=== PATIENT | female | born 1980 | race African-American/Black ===

== ENCOUNTER 2016-09-27 06:30 | Emergency (ER) | payer MEDICAID, OTHER ==
[~2016-09-27] VITALS: Ht 162.6 cm; Wt 79.4 kg
[~2016-09-27 06:30] MED LIST: FLUT1SPR5 EACH NARE; TRAM50TA PO; ZOFR4TAB PO
[2016-09-27 06:37] VITALS: BP 121/84; PULSE 78; RESP 16; TEMP 97.8; O2SAT 100
[2016-09-27 07:09] LABS: BLOOD, URINE LARGE (NEG); GLUCOSE,URINE NEG (NEG); KETONE, URINE NEG (NEG); NITRITE,URINE NEG (NEG); PH, URINE 5.5 (5.0-8.5)
[2016-09-27 07:12] LABS: METHOD OF COLLECTION CLEAN CATCH; URINE COLOR YELLOW (YELLW/STRAW)
[2016-09-27 07:14] LABS: COMMENT (UR) CULTURE INDICATED; CULTURE IF INDICATED CULTURE INDICATED
[2016-09-27] MEDS ORDERED: CIPR-9 PO (07:20)
--- NOTE | 2016-09-27 07:54 | PD ---
HPI Chief Complaint: Complaint Time Seen by Provider: 07:15 Travel History International Travel<30 days: No Contact w/Intl Traveler<30days: No Traveled to known affect area: No History of Present Illness HPI The patient was seen and examined in the presence of the nurse. She complains of urinary urgency and hematuria. No fever or flank pain. Symptoms severity is mild PFSH Past Medical History Hx Anticoagulant Therapy: No Asthma: Yes Heart Rhythm Problems: No Cardiac Catheterization: No Cardiovascular Problems: No High Cholesterol: No Congestive Heart Failure: No Diabetes: No Diminished Hearing: No Headaches: Yes Heparin Induced Thrombocytopen: No Hypertension: No Musculoskeletal: Yes (CHRONIC BACK PAIN) Immunizations Current: Yes ?: Not LMP: 08/30/16 : 4 Para: 2 Miscarriage: 1 : 1 Tubal Ligation: Yes Past Surgical History Section: Yes Coronary Artery Bypass Graft: No Gynecologic Surgery: Yes (C/SECTION, D&C) Social History Alcohol Use: No Tobacco Use: Yes (09/27 ppd) Substance Use: No Allergies-Medications (Allergen,Severity, Reaction): Coded Allergies: Lortab (Unverified Allergy, Severe, anaphylaxis, 09/27/16) Orphenadrine (Verified Allergy, Severe, "GOT A UTI", 09/27/16) Zithromax (Verified Allergy, Severe, Lethargy, 09/27/16) Vaishali Seed (Verified Allergy, Unknown, 09/27/16) [place] (Verified Allergy, Unknown, 09/27/16) Uncoded Allergies: TREE NUTS (Allergy, Unknown, 07/25/16) Reported Meds & Prescriptions Reported Meds & Active Scripts Active Cipro (Ciprofloxacin HCl) 500 Mg Tab 500 Mg PO BID Review of Systems General / Constitutional: No: Fever HENT: No: Headaches Physical Exam Narrative GASTROINTESTINAL: Abdomen soft, non-tender, nondistended. Positive bowel sounds. No hepato-splenomegaly, or palpable masses. No guarding. SKIN: Inspection shows no rash or ulcers. Palpation shows no induration or nodules. Data Data Last Documented VS Vital Signs Date Time Temp Pulse Resp B/P Pulse Ox O2 Delivery O2 Flow Rate FiO2 09/27/16 06:37 97.8 78 16 121/84 100 Room Air Orders Urinalysis - C+S If Indicated (09/27/16 07:00) Urine Culture (09/27/16 06:58) Labs Laboratory Tests Test 09/27/16 06:58 Urine Collection Type CLEAN CATCH Urine Color YELLOW Urine Turbidity CLOUDY Urine pH 5.5 Urine Specific [place] 1.008 Urine Protein NEG mg/dL Urine Glucose (UA) NEG mg/dL Urine Ketones NEG mg/dL Urine Occult Blood LARGE Urine Nitrite NEG Urine Bilirubin NEG Urine Leukocyte Esterase LARGE Urine RBC 10-14 /hpf Urine WBC 25-49 /hpf Urine WBC Clumps MANY Microscopic Urinalysis Comment CULTURE INDICATED MDM Medical Decision Making Medical Screen Exam Complete: Yes Emergency Medical Condition: Yes Medical Record Reviewed: Yes Differential Diagnosis Cystitis, pyelonephritis, UTI Narrative Course I have reviewed the patient's electronic medical record. Urinalysis consistent with infection Prescribed 5 days of Cipro Diagnosis Primary Impression: Acute cystitis Qualified Code: N30.01 - Acute cystitis with hematuria Referrals: Family Practice Physician call for appointment Patient Instructions: General Instructions, Dysuria (ED) Departure Forms: Work Release, Enter return to work date: Sep 28, 2016 Tests/Procedures Scripts Ciprofloxacin (Cipro)500 Mg [id number] Mg PO BID #10 TAB Ref 0 Prov:Riley Nagy MD 09/27/16 Disposition: DISCHARGE HOME Condition: Stable Riley Nagy MD Sep 27, 2016 07:54
[2017-03-10] MEDS ORDERED: GABA300C5 PO (10:04)
== END 2016-09-27 08:22 | disposition home or self-care (01) ==
LOC: PHED 06:30
DX: N30.01 Acute cystitis with hematuria (principal); B96.89 Other specified bacterial agents as the cause of diseases classified elsewhere
CPT/HCPCS: 81001; 87086; 99283

== ENCOUNTER 2017-02-26 12:55 | Emergency (ER) | payer MEDICAID, OTHER ==
[~2017-02-26] VITALS: Ht 162.6 cm; Wt 78.0 kg
[2017-02-26 12:58] VITALS: BP 133/88; PULSE 72; RESP 24; TEMP 97.7; O2SAT 100
--- NOTE | 2017-02-26 13:02 | PD ---
Physical Exam Date Seen by Provider: Feb 26, 2017 Data Data Last Documented VS Vital Signs Date Time Temp Pulse Resp B/P Pulse Ox O2 Delivery O2 Flow Rate FiO2 02/26/17 12:58 97.7 72 24 133/88 100 Room Air MDM Supervised Visit with ALEX: No Narrative Course 36 year old female with complaint of heavy menstrual bleeding, weakness, chills x 2 days. Denies risk of . Vitals reviewed. Awaiting bed placement. Lucille Niño Feb 26, 2017 13:02
--- NOTE | 2017-02-26 13:34 | PD ---
HPI Chief Complaint: Leave Specialist Problem/Complaint Time Seen by Provider: 13:34 Travel History International Travel<30 days: No Contact w/Intl Traveler<30days: No Traveled to known affect area: No History of Present Illness HPI 36 year-old female presents to the emergency department for evaluation of vaginal bleeding for 2 days. Patient states that she has had episodes of heavy vaginal bleeding associated with menses. She has been followed by Gretel Cisneros for this and has appointment March 02 to follow-up. Today she came to the emergency department because she states she feels more tired than usual "like she can barely keep her eyes open." Denies any significant pain. She has menses-like cramping. Denies vaginal discharge other than the bleeding. Has had no fever or chills. No nausea or vomiting. She has no other symptoms to report. PFSH Past Medical History Hx Anticoagulant Therapy: No Asthma: Yes Heart Rhythm Problems: No Cardiac Catheterization: No Cardiovascular Problems: No High Cholesterol: No Chemotherapy: No Congestive Heart Failure: No Cerebrovascular Accident: No Diabetes: No Diminished Hearing: No Headaches: Yes Heparin Induced Thrombocytopen: No Hypertension: No Musculoskeletal: Yes (CHRONIC BACK PAIN) Respiratory: Yes (Asthma) Immunizations Current: Yes LMP: Currently : 4 Para: 2 Miscarriage: 1 : 1 Tubal Ligation: Yes Past Surgical History Section: Yes Coronary Artery Bypass Graft: No Gynecologic Surgery: Yes (C/SECTION, D&C) Hysterectomy: No Social History Alcohol Use: No Tobacco Use: Yes (1/2 ppd) Substance Use: No Allergies-Medications (Allergen,Severity, Reaction): Coded Allergies: Orphenadrine (Verified Allergy, Severe, "GOT A UTI", 02/26/17) Zithromax (Verified Allergy, Severe, itching, 02/26/17) [place] (Verified Allergy, Intermediate, itching, 02/26/17) [place] (Verified Allergy, Unknown, itching, 02/26/17) Lortab (Verified Adverse Reaction, Intermediate, anaphylaxis, 02/26/17) Uncoded Allergies: TREE NUTS (Allergy, Unknown, 07/25/16) Reported Meds & Prescriptions Reported Meds & Active Scripts Active No Active Prescriptions or Reported Medications Review of Systems Except as stated in HPI: all other systems reviewed are Neg Physical Exam Narrative GENERAL: Well-nourished female patient, in no acute distress SKIN: Focused skin assessment warm/dry. HEAD: Atraumatic. Normocephalic. EYES: Pupils equal and round. No scleral icterus. No injection or drainage. ENT: No nasal bleeding or discharge. Mucous membranes pink and moist. NECK: Trachea midline. No JVD. CARDIOVASCULAR: Regular rate and rhythm. No murmur appreciated. RESPIRATORY: No accessory muscle use. Clear to auscultation. Breath sounds equal bilaterally. GASTROINTESTINAL: Abdomen soft, non-tender, nondistended. Hepatic and splenic margins not palpable. MUSCULOSKELETAL: No obvious deformities. No clubbing. No cyanosis. No edema. NEUROLOGICAL: Awake and alert. No obvious cranial nerve deficits. Motor grossly within normal limits. Normal speech. Data Data Last Documented VS Vital Signs Date Time Temp Pulse Resp B/P Pulse Ox O2 Delivery O2 Flow Rate FiO2 02/26/17 15:45 97.8 76 17 122/77 99 02/26/17 12:58 Room Air Orders Iv Access Insert/Monitor (02/26/17 13:46) Complete Blood Count With Diff (02/26/17 13:46) Basic Metabolic Panel (Bmp) (02/26/17 13:46) Urinalysis - C+S If Indicated (02/26/17 13:46) Sodium Chlor 0.9% 1000 Ml Inj (Ns 1000 M (02/26/17 14:00) Type And Screen (02/26/17 13:46) Labs Laboratory Tests Test 02/26/17 13:50 White Blood Count 5.9 TH/MM3 Red Blood Count 4.68 MIL/MM3 Hemoglobin 13.8 GM/DL Hematocrit 40.8 % Mean Corpuscular Volume 87.2 FL Mean Corpuscular Hemoglobin 29.5 PG Mean Corpuscular Hemoglobin 33.9 % Concent Red Cell Distribution Width 12.4 % Platelet Count 196 TH/MM3 Mean Platelet Volume 9.2 FL Neutrophils (%) (Auto) 50.3 % Lymphocytes (%) (Auto) 36.1 % Monocytes (%) (Auto) 10.2 % Eosinophils (%) (Auto) 2.2 % Basophils (%) (Auto) 1.2 % Neutrophils # (Auto) 3.0 TH/MM3 Lymphocytes # (Auto) 2.1 TH/MM3 Monocytes # (Auto) 0.6 TH/MM3 Eosinophils # (Auto) 0.1 TH/MM3 Basophils # (Auto) 0.1 TH/MM3 CBC Comment DIFF FINAL Differential Comment Urine Color YELLOW Urine Turbidity CLEAR Urine pH 6.5 Urine Specific [place] 1.022 Urine Protein NEG mg/dL Urine Glucose (UA) NEG mg/dL Urine Ketones NEG mg/dL Urine Occult Blood MOD Urine Nitrite NEG Urine Bilirubin NEG Urine Urobilinogen LESS THAN 2.0 MG/DL Urine Leukocyte Esterase NEG Urine RBC 31 /hpf Urine Squamous Epithelial <1 /hpf Cells Urine Mucus FEW /lpf Microscopic Urinalysis Comment CULT NOT INDICATED Sodium Level 139 MEQ/L Potassium Level 3.7 MEQ/L Chloride Level 106 MEQ/L Carbon Dioxide Level 26.7 MEQ/L Anion Gap 6 MEQ/L Blood Urea Nitrogen 12 MG/DL Creatinine 0.78 MG/DL Estimat Glomerular Filtration 100 ML/MIN Rate Random Glucose 92 MG/DL Calcium Level 8.8 MG/DL Blood Type AB POSITIVE Antibody Screen NEGATIVE Blood Bank Comment MDM Medical Decision Making Medical Screen Exam Complete: Yes Emergency Medical Condition: Yes Medical Record Reviewed: Yes Differential Diagnosis Vaginal bleeding versus menses versus menorrhagia versus dysmenorrhea versus symptomatic anemia fatigue versus electrolyte abnormality Narrative Course 36 year-old female presents to the emergency department for evaluation of vaginal bleeding 2 days with associated fatigue. Patient appears without distress. Her vital signs are stable. CBC and BMP are unremarkable. I discussed the patient my attending physician. Patient states she has an appointment on March 02 with Gretel who follows her for her vaginal bleeding. Patient is instructed to follow-up with her and to return immediately with any acute worsening symptoms. Diagnosis Primary Impression: Menorrhagia Qualified Code: N92.0 - Menorrhagia with regular cycle Referrals: Gretel Cisneros call for appointment Keep appt for March 02 Primary Care Physician Patient Instructions: General Instructions, Menorrhagia (ED) Departure Forms: Tests/Procedures, Work Release Enter return to work date: Feb 28, 2017 Additional Instructions: Maintain adequate oral hydration Follow-up with your field training agent. Keep your appointment as scheduled Return immediately to the emergency department with any acute worsening symptoms Med/Other Pt SpecificInfo: No Change to Meds Scripts No Active Prescriptions or Reported Meds Disposition: 01 DISCHARGE HOME Condition: Stable Tram Bhakta Feb 26, 2017 13:34
[2017-02-26] MEDS ORDERED: SODIUM CHLOR 0.9% 1000 ML INJ 1,000 ML IV ONE (14:00)
[2017-02-26 14:08] LABS: BASOPHIL # 0.1 TH/MM3 (0-0.2); BASOPHIL % 1.2 % (0.0-2.0); EOSINOPHIL # 0.1 TH/MM3 (0-0.4); EOSINOPHIL % 2.2 % (0.0-4.0); HEMATOCRIT 40.8 % (35.0-46.0); HEMO FLAGS DIFF FINAL; LYMPH % 36.1 % (9.0-44.0); LYMPHOCYTE # 2.1 TH/MM3 (1.0-4.8); MEAN CELL VOLUME 87.2 FL (80.0-100.0); MEAN CORPUSCULAR HEMOGLOBIN 29.5 PG (27.0-34.0); MEAN CORPUSCULAR HGB CONC 33.9 % (32.0-36.0); MONO % 10.2 % (0.0-8.0); NEUT % 50.3 % (16.0-70.0); PLATELET COUNT 196 TH/MM3 (150-450); RED BLOOD COUNT 4.68 MIL/MM3 (4.00-5.30); RED CELL DISTRIBUTION WIDTH 12.4 % (11.6-17.2); WHITE BLOOD COUNT 5.9 TH/MM3 (4.0-11.0)
[2017-02-26 14:15] LABS: BLOOD, URINE MOD (NEG); COMMENT (UR) CULT NOT INDICATED; CULTURE IF INDICATED CULT NOT INDICATED; GLUCOSE,URINE NEG (NEG); KETONE, URINE NEG (NEG); MUCUS URINE FEW /lpf (OCC); NITRITE,URINE NEG (NEG); PH, URINE 6.5 (5.0-8.5); SQUAMOUS EPITHELIAL CELL URINE <1 /hpf (0-5); URINE COLOR YELLOW (YELLW/STRAW)
[2017-02-26 14:22] LABS: BICARBONATE 26.7 MEQ/L (21.0-32.0); POTASSIUM 3.7 MEQ/L (3.5-5.1)
[2017-02-26 15:45] VITALS: BP 122/77; TEMP 97.8
[2017-03-10] MEDS ORDERED: GABA300C5 PO (10:04)
== END 2017-02-26 15:20 | disposition home or self-care (01) ==
LOC: NEPC 12:55
DX: N92.0 Excessive and frequent menstruation with regular cycle (principal); J45.909 Unspecified asthma, uncomplicated; F17.210 Nicotine dependence, cigarettes, uncomplicated
CPT/HCPCS: 80048; 81001; 85025; 86850; 86900; 86901; 99283; J7030

== ENCOUNTER 2017-03-20 09:49 | Emergency (ER) | payer MEDICAID, OTHER ==
[~2017-03-20] VITALS: Ht 162.6 cm; Wt 78.0 kg
[~2017-03-20 09:49] MED LIST changes: -FLUT1SPR5 EACH NARE; +GABA300C5 PO; -TRAM50TA PO; -ZOFR4TAB PO
[2017-03-20 09:51] VITALS: BP 120/81; PULSE 83; RESP 16; TEMP 98.2; O2SAT 100
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
[2017-03-20] MEDS ORDERED: GABA300C5 PO (10:08)
[2017-03-20] MEDS ORDERED: IBUP-232 PO (10:08)
[2017-03-20] MEDS ORDERED: PERC5TAB12 PO ×2 (10:17→10:38)
[2017-03-20] MEDS ORDERED: DEXAMETHASONE SOD PHOS 4 MG/ML VIAL IM ONE (10:30)
[2017-03-20] MEDS ORDERED: oxyCODONE/ACETAMINOPHEN 5 MG/325 MG TAB PO ONE (10:30)
== END 2017-03-20 11:07 | disposition home or self-care (01) ==
LOC: PHEFT 09:49
DX: M79.2 Neuralgia and neuritis, unspecified (principal); M79.672 Pain in left foot
CPT/HCPCS: 96372 ×2; 99284; J1100

== ENCOUNTER → 2017-05-13 | Outpatient (CLI) | payer OTHER, MEDICAID ==
[~2017-05-13] MED LIST changes: +AMOX500T PO; +DIAZ5 PO; +IBUP-232 PO; +PERC5TAB12 PO
== END ==
LOC: CPRE 12:53
PROVIDERS: ATTEND Obstetrics & Gynecology
DX: Z01.812 Encounter for preprocedural laboratory examination (principal)

== ENCOUNTER 2017-06-08 06:08 | Observation (INO) | payer OTHER, MEDICAID ==
[~2017-06-08] VITALS: Ht 162.6 cm; Wt 75.8 kg
[~2017-06-08 06:08] MED LIST changes: -AMOX500T PO
[2017-06-08] MEDS: CHLORHEXIDINE GLUCONATE 2 % 1 PACK (2 CLOTHS) TOPICAL PRN (06:20)
[2017-06-08] MEDS ORDERED: ESTROGENS CONJUGATED VAG CREA 15 APPL/30 GM TUBE ONE (06:43)
[2017-06-08] MEDS ORDERED: INSULIN HUMAN REGULAR 1,000 UNITS/10 ML VIAL SQ PRN (06:45)
[2017-06-08] MEDS ORDERED: LACTATED RINGER'S 1000 ML IV PRN (06:45)
[2017-06-08] MEDS ORDERED: METOPROLOL TARTRATE 25 MG TAB PO PRN (06:45)
[2017-06-08] MEDS ORDERED: SODIUM CHLORID 0.9% 500 ML IV PRN (06:45)
[2017-06-08] MEDS: POVIDONE IODINE 5% (ANTISEPSIS KIT) 4 APPLICATIONS EACH NARE PRN ×2 (06:56→06:57)
[2017-06-08] MEDS: ceFAZolin 1,000 MG/NS 100 ML IV SCH ×4 (07:00→08:30)
[2017-06-08] MEDS ORDERED: DO NOT ADM ANY ANTICOAGULANT DRUGS PRN (10:59)
[2017-06-08] MEDS ORDERED: ONDANSETRON ODT 4 MG TAB PO PRN (11:00)
[2017-06-08] MEDS ORDERED: oxyCODONE/ACETAMINOPHEN 5 MG/325 MG TAB PO PRN (11:00)
[2017-06-08] MEDS ORDERED: SODIUM CHLORIDE 0.9% FLUSH 10 ML FLUSH IV FLUSH PRN (11:00)
[2017-06-08] MEDS ORDERED: PROMETHAZINE INJ 25 MG/ML VIAL IM PRN (11:00)
[2017-06-08] MEDS ORDERED: ZOLPIDEM TARTRATE 5 MG TAB PO PRN (11:00)
[2017-06-08] MEDS ORDERED: DIAZEPAM 5 MG TAB PO PRN (11:00)
[2017-06-08] MEDS ORDERED: ONDANSETRON HCL 4 MG/2 ML VIAL IVP PRN (11:00)
[2017-06-08] MEDS ORDERED: HYDROmorphone HCL PF 1 MG/ML VIAL IVP PRN (11:00)
[2017-06-08] MEDS: DOCUSATE SODIUM 100 MG CAP PO SCH ×2 (11:00→23:47)
[2017-06-08] MEDS ORDERED: *morphine SULFATE 8 MG/ML PERIprocedure ONLY ONE (11:40)
[2017-06-08] MEDS: LACTATED RINGER'S 1000 ML INJ 1,000 ML IV SCH ×2 (11:44→19:44)
[2017-06-08] MEDS ORDERED: ONDANSETRON HCL 4 MG/2 ML VIAL IV PUSH ONE (12:00)
[2017-06-08] MEDS ORDERED: NEOSTIGMINE METHYLSULFATE 10 MG/10 ML VIAL IV PUSH ONE (12:00)
[2017-06-08] MEDS ORDERED: diphenhydrAMINE HCL 25 MG CAP PO PRN (12:00)
[2017-06-08] MEDS ORDERED: NEOSTIGMINE 3 MG/3 ML SYR IV ONE (12:00)
[2017-06-08] MEDS ORDERED: PROPOFOL 200 MG/20 ML AMP IV ONE (12:00)
[2017-06-08] MEDS ORDERED: PHENYLEPH/NS 1000 MCG/10 ML SYR IV ONE (12:00)
[2017-06-08] MEDS ORDERED: MORPHINE SULFATE 4 MG/ML INJ IV ONE (12:00)
[2017-06-08 12:25] VITALS: BP 117/68; PULSE 76; RESP 16; TEMP 97.8; O2SAT 98
[2017-06-08] MEDS: GABAPENTIN 300 MG CAP PO SCH ×2 (14:29→18:59)
[2017-06-08 15:53] VITALS: BP 94/58; PULSE 84; RESP 16; TEMP 98.5
[2017-06-08] MEDS: oxyCODONE/ACETAMINOPHEN 5 MG/325 MG TAB PO PRN (19:40)
[2017-06-08] MEDS: IBUPROFEN 600 MG TAB PO PRN (19:41)
[2017-06-08 20:15] VITALS: BP 97/67; PULSE 81; RESP 18; TEMP 98.4
[2017-06-08] MEDS ORDERED: SODIUM CHLORIDE 0.9% FLUSH 10 ML FLUSH IV FLUSH SCH (21:00)
[2017-06-09 01:01] VITALS: BP 88/50; PULSE 58; RESP 16; TEMP 98.2; O2SAT 96
[2017-06-09 03:00] VITALS: BP 88/50; PULSE 56; RESP 18; TEMP 98.3
[2017-06-09] MEDS: LACTATED RINGER'S 1000 ML INJ 1,000 ML IV SCH (03:00)
[2017-06-09] MEDS: IBUPROFEN 600 MG TAB PO PRN ×2 (03:17→09:37)
[2017-06-09 04:00] LABS: AUTOMATED NEUTROPHIL # 4.5 TH/MM3 (1.8-7.7); BASOPHIL % 0.5 % (0.0-2.0); EOSINOPHIL # 0.1 TH/MM3 (0-0.4); EOSINOPHIL % 0.8 % (0.0-4.0); HEMO FLAGS DIFF FINAL; LYMPH % 28.6 % (9.0-44.0); LYMPHOCYTE # 2.1 TH/MM3 (1.0-4.8); MEAN CELL VOLUME 89.1 FL (80.0-100.0); MEAN CORPUSCULAR HEMOGLOBIN 30.1 PG (27.0-34.0); MEAN CORPUSCULAR HGB CONC 33.7 % (32.0-36.0); MONO % 7.9 % (0.0-8.0); NEUT % 62.2 % (16.0-70.0); PLATELET COUNT 156 TH/MM3 (150-450); RED BLOOD COUNT 3.48 MIL/MM3 (4.00-5.30); RED CELL DISTRIBUTION WIDTH 12.2 % (11.6-17.2); WHITE BLOOD COUNT 7.2 TH/MM3 (4.0-11.0)
[2017-06-09 04:22] LABS: BICARBONATE 27.5 MEQ/L (21.0-32.0); POTASSIUM 3.6 MEQ/L (3.5-5.1)
[2017-06-09] MEDS: oxyCODONE/ACETAMINOPHEN 5 MG/325 MG TAB PO PRN ×2 (05:32→09:38)
[2017-06-09 07:55] VITALS: BP 86/50; PULSE 66; RESP 16; TEMP 98.1
--- NOTE | 2017-06-09 08:01 | HHI.PR ---
Subjective Remarks Doing well, pain is well controlled, eating well. Ambulating well, no chest pain or dizziness My blood count is always low. Good flatus and no nausea Objective Vital Signs Vital Signs Date Time Temp Pulse Resp B/P (MAP) Pulse Ox O2 Delivery O2 Flow Rate FiO2 06/09/17 03:00 98.3 56 18 88/50 (63) 06/09/17 01:01 98.2 58 16 88/50 (63) 96 06/08/17 20:15 98.4 81 18 97/67 (77) 06/08/17 15:53 98.5 84 16 94/58 (70) 06/08/17 12:25 97.8 76 16 117/68 (84) 98 06/08/17 12:00 68 16 117/74 (88) 100 Nasal Cannula 2 06/08/17 11:45 64 16 124/80 (95) 100 Nasal Cannula 2 06/08/17 11:30 68 16 124/80 (95) 100 Nasal Cannula 2 06/08/17 11:15 73 16 114/73 (87) 100 Nasal Cannula 2 06/08/17 11:00 78 16 112/72 (85) 100 Nasal Cannula 2 06/08/17 10:56 97.5 81 16 111/73 (86) 100 Nasal Cannula 2 I/O 06/08/17 06/08/17 06/08/17 06/09/17 06/09/17 06/09/17 07:00 15:00 23:00 07:00 15:00 23:00 Intake Total 125 ml 1500 ml 1000 ml 1425 ml Output Total 650 ml 1050 ml 1400 ml Balance 125 ml 850 ml -50 ml 25 ml Intake Oral 500 ml 300 ml IV Total 125 ml 200 ml 500 ml 1125 ml Other 1300 ml Output Urine Total 450 ml 1050 ml 1400 ml Estimated Blood Loss 200 ml Result Diagram: 06/09/17 03406/09/17 034 Objective Remarks Chest is clear, regular rate and rhythm. Abdomen is soft and non-distended. Good bowel sounds Incisions are clean and dry. Ext no CCE. A/P Assessment and Plan Post Op Day 1 Mild anemia Will restart fe after done with the narcotics Low BP good urine output and pulse is normal. Will recheck it at post op appt. no evidence of bleeding on exam. Doing well Home today and return to office in two weeks. Bossman Sandoval MD Jun 09, 2017 08:01
--- NOTE | 2017-06-09 08:33 | HHI.DCPOC ---
Discharge Care Plan Diagnosis: (1) Menorrhagia Report Symptoms to Your Doctor -Temperature above 100.5 degrees -Redness, of incision or excessive or foul smelling drainage -Unusual pain or calf pain -Increased vaginal bleeding -Painful or difficulty urinating -Feelings of extreme sadness or anxiety after 2 weeks Goals to Promote Your Health * To prevent worsening of your condition and complications * To maintain your health at the optimal level Directions to Meet Your Goals Take your medications as prescribed Follow your dietary instruction Follow activity as directed Ensure plenty of rest for recovery Drink fluids for hydration Keep your appointments as scheduled Take your immunizations and boosters as scheduled If your symptoms worsen call your PCP, if no PCP go to Urgent Care Center or Emergency Room Smoking is Dangerous to Your Health. Avoid second hand smoke Call the 24-hour crisis hotline for domestic abuse at Bossman Sandoval MD Jun 09, 2017 08:33
--- NOTE | 2017-06-09 09:35 | MP ---
cc: Bossman SANDOVAL MD Corrected Copy: 06/23/17 DATE OF SURGERY 06/08/2017 PREOPERATIVE DIAGNOSIS 1. Severe menorrhagia 2. Dysmenorrhea 3. Dyspareunia POSTOPERATIVE DIAGNOSIS 1. Severe menorrhagia 2. Dysmenorrhea 3. Dyspareunia 4. Liver adhesions and posterior cul-de-sac adhesions 5. A low hanging left ovary. PROCEDURE Laparoscopic-assisted vaginal hysterectomy, bilateral salpingectomy and lysis of adhesions around the liver and suspension of left ovary. ANESTHESIA The anesthesia was general endotracheal intubation SURGEON Emerson Sandoval MD FINDINGS Examination under anesthesia, the uterus is 8 weeks' size and mobile. The adnexa were negative for masses. The cervix was small, nulliparous and the laparoscopic exam revealed a fibroid uterus. The fallopian tubes had been transected bilaterally from previous tubal ligation. The left ovary was normal. The ovary was hanging very low and adhesed to the posterior portion of the uterus needed to be taken down. We moved it up so she would have no more painful intercourse. The right ovary was normal as well. There was quite a few posterior cul-de-sac adhesions one was quite thick on the right side. It was right near the uterosacral ligament. The GI tract looked normal. The liver looked normal. There was Bwau-Cueq-Sxzzgx syndrome adhesions and these were taken down. COMPLICATIONS None COUNTS Correct. ESTIMATED BLOOD LOSS 150 cc FLUIDS Crystalloids DISPOSITION The patient tolerated the procedure well and went to the recovery room in good condition. PROCEDURE The patient was taken to the operating room, identified by name band and verbally given a general anesthetic. She was prepped and draped in the usual sterile manner for a laparoscopic assisted vaginal hysterectomy. A Mendoza catheter was inserted and examination under anesthesia was carried out. A weighted speculum was placed in the vagina. The anterior lip of the cervix was grasped with a single-tooth tenaculum and a V-Care with a large cuff was placed into the vagina and uterus for uterine manipulation. Once this had been accomplished, a small subumbilical incision was made. The peritoneum was entered under direct vision without complications and pneumoperitoneum was created with 3 liters of CO2. There was some adhesions from her previous section from the omentum anteriorly. A second puncture was placed inferolateral to the umbilicus on the left and these adhesions were taken down. At this time, the entire pelvis and abdomen were visualized with the above findings. We started dissection on the round ligaments, took these down bilaterally without difficulty. We then proceeded to go down and remove the broad ligament with the LigaSure device into the level of the internal cervical os. This was done bilaterally. At this point, we developed a bladder flap more fully. This was quite difficult. There was lot of adhesive disease in their accounting for the long time in surgery. Once this had been cleaned up and I could see the V-Care easily, everything looked good. Hemostasis was excellent. We took the uterine vessels to the level of the internal cervical os without difficulty bilaterally and then we skeletonized the cardinal ligament and staying very close to the cervix, we took down the cardinal ligament to the level where we could see the V-Care easily and had a lot of the room to close the cuff. At this point, I was using the LigaSure and I attempted to enter the vagina, however this was not very successful so we used scissors. Again, this was some more difficult than I thought and instead of having her bleed so much, we went ahead and went below. The V-Care device was removed and a circumferential incision was made around the cervix like the start of a hysterectomy and this was taken down and the specimen came loose quite easily. The specimen was delivered without any difficulty. The vaginal cuff was then grasped with Allis and the vaginal cuff was closed with 0 Vicryl in an interrupted fashion without difficulty. Once this had been accomplished, we proceeded with irrigating the vagina. Hemostasis was excellent. We went back to the abdomen and irrigated the pelvis with a large amount of fluids. There was some oozing from the lower left ovary where we took down those posterior cul-de-sac adhesions and a little bit was used for hemostasis. At this point, we removed the remainder of the fallopian tubes that were the fimbriated ends which were still attached to the ovaries with the LigaSure device with no problem. We then suspended the left ovary to the pelvic sidewall to move it away from the vaginal cuff. Attention was then turned to the liver and we took down those adhesions with blunt dissection without difficulty and the irrigated that area out as well. At this point, the air was released. The trocars were removed under direct vision and she tolerated the procedure well. These skin incisions were repaired with a 4-0 Monocryl in a subcuticular manner. She tolerated the procedure well, went to the recovery room in good condition. R. MD FRANKLIN Mccormick/DJJulienne /10:52 AM /11:58 AM
[2017-06-09] MEDS: GABAPENTIN 300 MG CAP PO SCH (09:37)
== END 2017-06-09 09:52 | disposition home or self-care (01) ==
LOC: HSDC 06:08 → HSDI 10:52 → H1EA 12:19
PROVIDERS: ADMIT Obstetrics & Gynecology; ATTEND Obstetrics & Gynecology
DX: D25.9 Leiomyoma of uterus, unspecified (principal); N92.0 Excessive and frequent menstruation with regular cycle; D64.9 Anemia, unspecified; N94.6 Dysmenorrhea, unspecified; Z98.51 Tubal ligation status
CPT/HCPCS: 00840; 58552; 80048; 84703; 85025; 86850; 86900; 86901; 88307; G0378; J0690; J2270; J2370; J2405; J2710; J3010; J7120

== ENCOUNTER 2017-07-15 09:47 | Emergency (ER) | payer OTHER, MEDICAID ==
[~2017-07-15] VITALS: Ht 162.6 cm; Wt 74.9 kg
[2017-07-15 09:52] VITALS: BP 126/76; PULSE 80; RESP 18; TEMP 98; O2SAT 98
[2017-07-15 10:51] VITALS: BP 126/76; PULSE 80; RESP 18; TEMP 98; O2SAT 98
[2017-07-15] MEDS ORDERED: GABA300C5 PO (10:56)
--- NOTE | 2017-07-15 11:32 | PD ---
HPI Chief Complaint: ENT Complaint Time Seen by Provider: 11:19 Travel History International Travel<30 days: No Contact w/Intl Traveler<30days: No Traveled to known affect area: No History of Present Illness HPI 36-year-old female presents to emergency department for a 3 day history of sore throat and chills. States that she returned to work this past Tuesday after a month off, started developing a 'tickle in the throat' and then developed into her symptoms she has now. States she had a fever over 103.6, took Robitussin and is now controlled. States that she is having trouble swallowing because of the pain. She has associated dull, constant ear, jaw and neck pain. Denies unusual cough, rhinorrhea, chest pain, shortness of breath, abdominal pain, leg pain, rash. Of note she had a hysterectomy one month ago however states that she is doing well post op. PFSH Past Medical History Hx Anticoagulant Therapy: No Asthma: Yes Heart Rhythm Problems: No Cancer: No Cardiac Catheterization: No Cardiovascular Problems: No High Cholesterol: No Chemotherapy: No Chest Pain: No Congestive Heart Failure: No Cerebrovascular Accident: No Diabetes: No Diminished Hearing: No Endocrine: No Gastrointestinal Disorders: No Genitourinary: No Headaches: Yes Hepatitis: No Hiatal Hernia: No Heparin Induced Thrombocytopen: No Hypertension: No Immune Disorder: No Medical other: No Musculoskeletal: Yes (CHRONIC BACK PAIN) Neurologic: Yes (NEUROPATHY LLE) Psychiatric: No Reproductive: No Respiratory: No Immunizations Current: Yes Thyroid Disease: No ?: Not : 4 Para: 2 Miscarriage: 1 : 1 Dilation and Curettage (D&C): Yes Tubal Ligation: Yes Past Surgical History Abdominal Surgery: No AICD: No Body Medical Devices: NONE Cardiac Surgery: No Section: Yes Coronary Artery Bypass Graft: No Ear Surgery: No Endocrine Surgery: No Eye Surgery: No Genitourinary Surgery: No Gynecologic Surgery: Yes (C/SECTION, D&C, TUBAL LIGATION) Hysterectomy: Yes Joint Replacement: No Neurologic Surgery: No Oral Surgery: No Pacemaker: No Thoracic Surgery: No Social History Alcohol Use: Yes (ocassionally) Tobacco Use: Yes (1/2 ppd) Substance Use: No Allergies-Medications (Allergen,Severity, Reaction): Coded Allergies: azithromycin (Unverified Allergy, Severe, itching, 07/15/17) orphenadrine (Unverified Allergy, Severe, "GOT A UTI", 07/15/17) tevin seed (Unverified Allergy, Intermediate, itching, 07/15/17) barley (Unverified Allergy, Unknown, itching, 07/15/17) acetaminophen (Unverified Adverse Reaction, Intermediate, anaphylaxis, ) hydrocodone (Unverified Adverse Reaction, Intermediate, anaphylaxis, 07/15) Uncoded Allergies: TREE NUTS (Allergy, Unknown, 07/25/16) Reported Meds & Prescriptions Reported Meds & Active Scripts Active Amoxicillin 500 Mg Tab 500 Mg PO TID 10 Days Reported Gabapentin 300 Mg Cap 300 Mg PO TID Valium (Diazepam) 5 Mg Tab 5 Mg PO BID PRN Review of Systems Except as stated in HPI: all other systems reviewed are Neg Physical Exam Narrative GENERAL: Well-nourished, well-developed patient, mild distress, non-muffled voice SKIN: Focused skin assessment warm/dry. No rash HEAD: Normocephalic. EYES: No scleral icterus. No injection or drainage. EARS: Bilateral pinnae and external canals appear within normal limits. Bilateral tympanic membranes without erythema, dullness or perforation. THROAT: Positive pharyngeal injection, exudates bilaterally, with tonsillar hypertrophy. Airway is patent. NECK: Supple, trachea midline. No JVD. No meningismus. Mild lymphadenopathy right greater than left CARDIOVASCULAR: Regular rate and rhythm without murmurs, gallops, or rubs. RESPIRATORY: Breath sounds equal bilaterally. No accessory muscle use. GASTROINTESTINAL: Abdomen soft, non-tender, nondistended. 3 well-healing wounds s/p hysterectomy- umbilicus, 2 laterally. MUSCULOSKELETAL: No cyanosis, or edema. BACK: Nontender without obvious deformity. No CVA tenderness. Data Data Last Documented VS Vital Signs Date Time Temp Pulse Resp B/P (MAP) Pulse Ox O2 Delivery O2 Flow Rate FiO2 07/15/17 11:41 07/15/17 10:51 98.0 80 18 98 07/15/17 09:52 Room Air Orders Orders Ketorolac Inj (Toradol Inj) (07/15/17 11:45) Ed Discharge Order (07/15/17 11:36) MDM Medical Decision Making Medical Screen Exam Complete: Yes Emergency Medical Condition: Yes Differential Diagnosis Strep pharyngitis versus viral pharyngitis versus viral syndrome versus allergic pharyngitis Narrative Course 36-year-old female presents to emergency department for evaluation of a sore throat that started 3 days ago. States that she has had sweats and chills with worsening sore throat over the last couple of days. She is a smoker and has a smoker's cough however denies any unusual cough. States that she has trouble swallowing because of the pain however is able to use [id number] medications to reduce her fever and aches. Physical exam demonstrated hypertrophic tonsils, exudate, with mild lymphadenopathy. Site of recent abdominal hysterectomy revealed 3 well-healing wounds without exudate or erythema. Vitals stable Toradol administered secondary to muscle aches Strep pharyngitis with likely viral component. Based off of [facility] criteria, will treat empirically. Advised to return to PCP for further evaluation within 2 days. Diagnosis Primary Impression: Strep pharyngitis Referrals: Primary Care Physician Departure Forms: Tests/Procedures, Work Release Enter return to work date: Jul 18, 2017 Additional Instructions: Return to primary care physician within 2 days. Follow-up with her ear nose and throat doctor for further treatment or evaluation Returns to emergency department if your condition persists or worsen Scripts Amoxicillin (Amoxicillin) 500 Mg Tab 500 MG PO TID for Infection for 10 Days, TAB 0 Refills Prov: Hipolito Serrano MD 07/15/17 Disposition: 01 DISCHARGE HOME Condition: Stable Payton Candelaria Jul 15, 2017 11:32
[2017-07-15] MEDS ORDERED: AMOX500T PO (11:34)
[2017-07-15] MEDS ORDERED: KETOROLAC TROMETHAMINE 60 MG/2 ML (IM) VIAL IM ONE (11:45)
== END 2017-07-15 11:49 | disposition home or self-care (01) ==
LOC: PHED 09:47 → PHEFT 11:49
DX: J02.0 Streptococcal pharyngitis (principal); M54.2 Cervicalgia; J45.909 Unspecified asthma, uncomplicated
CPT/HCPCS: 96372; 99284; J1885

== ENCOUNTER 2017-11-12 08:44 | Emergency (ER) | payer MEDICAID, OTHER ==
[~2017-11-12] VITALS: Ht 160 cm; Wt 75.6 kg
[~2017-11-12 08:44] MED LIST changes: +AMOX500T PO; -IBUP-232 PO; -PERC5TAB12 PO
[2017-11-12 08:46] VITALS: BP 134/65; PULSE 82; RESP 16; TEMP 98.2; O2SAT 99
[2017-11-12] MEDS ORDERED: IBUP-232 PO (09:06)
--- NOTE | 2017-11-12 09:12 | PD ---
HPI Chief Complaint: Abdominal Pain Time Seen by Provider: 08:56 Travel History International Travel<30 days: No Contact w/Intl Traveler<30days: No Traveled to known affect area: No History of Present Illness HPI The patient was seen and examined in the presence of the nurse. This patient complains of pelvic pain. Location is left lower quadrant. Duration 24 hours. Severity is moderate. It is constant. No bleeding or discharge. She had a hysterectomy for fibroids 5 months ago. No vomiting or diarrhea or fever. She ate without changing the pain yesterday. She says that her ovaries are in place in that one of her ovaries was "detached" and had to be tacked down. No alleviating factors. No exacerbating factors. PFSH Past Medical History Hx Anticoagulant Therapy: No Asthma: Yes Heart Rhythm Problems: No Cancer: No Cardiac Catheterization: No Cardiovascular Problems: No High Cholesterol: No Chemotherapy: No Chest Pain: No Congestive Heart Failure: No Cerebrovascular Accident: No Diabetes: No Diminished Hearing: No Endocrine: No Gastrointestinal Disorders: No Genitourinary: No Headaches: Yes Hepatitis: No Hiatal Hernia: No Heparin Induced Thrombocytopen: No Hypertension: No Immune Disorder: No Musculoskeletal: Yes (CHRONIC BACK PAIN, L5-S1 ) Neurologic: Yes (NEUROPATHY LLE) Psychiatric: No Reproductive: No Respiratory: No Immunizations Current: Yes Thyroid Disease: No Tetanus Vaccination: > 5 Years Influenza Vaccination: No ?: Not : 4 Para: 2 Miscarriage: 1 : 1 Dilation and Curettage (D&C): Yes Tubal Ligation: Yes Past Surgical History Abdominal Surgery: No AICD: No Body Medical Devices: NONE Cardiac Surgery: No Section: Yes (x 2) Coronary Artery Bypass Graft: No Ear Surgery: No Endocrine Surgery: No Eye Surgery: No Genitourinary Surgery: No Gynecologic Surgery: Yes (C/SECTION, D&C, TUBAL LIGATION, hysterectomy ) Hysterectomy: Yes Joint Replacement: No Neurologic Surgery: No Oral Surgery: No Pacemaker: No Thoracic Surgery: No Social History Alcohol Use: Yes (ocassionally) Tobacco Use: Yes (1/2 ppd) Substance Use: No Allergies-Medications (Allergen,Severity, Reaction): Coded Allergies: azithromycin (Unverified Allergy, Severe, itching, 11/12/17) orphenadrine (Unverified Allergy, Severe, "GOT A UTI", 11/12/17) tevin seed (Unverified Allergy, Intermediate, itching, 11/12/17) barley (Unverified Allergy, Unknown, itching, 11/12/17) acetaminophen (Unverified Adverse Reaction, Intermediate, anaphylaxis, ) hydrocodone (Unverified Adverse Reaction, Intermediate, anaphylaxis, ) Uncoded Allergies: TREE NUTS (Allergy, Unknown, 11/12/17) . Reported Meds & Prescriptions Reported Meds & Active Scripts Active Zofran (Ondansetron HCl) 4 Mg Tab 4 Mg PO Q6HR PRN Tramadol (Tramadol HCl) 50 Mg Tab 50 Mg PO Q6H PRN Reported Ibuprofen 600 Mg Tab 600 Mg PO DIRECTED Gabapentin 300 Mg Cap 300 Mg PO TID Review of Systems General / Constitutional: No: Fever Eyes: No: Visual changes HENT: No: Headaches Cardiovascular: No: Chest Pain or Discomfort Respiratory: No: Shortness of Breath Gastrointestinal: Positive: Abdominal Pain Genitourinary: Positive: Pelvic Pain, No: Dysuria Musculoskeletal: No: Pain Skin: No Rash Neurologic: No: Weakness Psychiatric: No: Depression Endocrine: No: Polydipsia Hematologic/Lymphatic: No: Easy Bruising Physical Exam Narrative GENERAL: Well-nourished, well-developed patient with left lower quadrant pain . SKIN: Focused skin assessment reveals no rash and nodules. Skin is Warm and dry. HEAD: Atraumatic. Normocephalic. EYES: Pupils equal and round. No scleral icterus. No injection or drainage. ENT: No nasal bleeding or discharge. Mucous membranes pink and moist. NECK: Trachea midline. No JVD. CARDIOVASCULAR: Regular rate and rhythm. No murmur appreciated. RESPIRATORY: No accessory muscle use. Clear to auscultation. Breath sounds equal bilaterally. GASTROINTESTINAL: Abdomen soft, left lower quadrant is tender without rebound or guarding, nondistended. Hepatic and splenic margins not palpable. MUSCULOSKELETAL: No obvious deformities. No clubbing. No cyanosis. No edema. NEUROLOGICAL: Awake and alert. No obvious cranial nerve deficits. Motor grossly within normal limits. Normal speech. PSYCHIATRIC: Appropriate mood and affect; insight and judgment normal. Data Data Last Documented VS Vital Signs Date Time Temp Pulse Resp B/P (MAP) Pulse Ox O2 Delivery O2 Flow Rate FiO2 11/12/17 08:46 98.2 82 16 134/65 (88) 99 Orders Orders Iv Access Insert/Monitor (11/12/17 09:08) Complete Blood Count With Diff (11/12/17 09:08) Basic Metabolic Panel (Bmp) (11/12/17 09:08) Us Pelvis Comp W Doppler (11/12/17 ) Labs Laboratory Tests Test 11/12/17 09:15 White Blood Count 6.4 TH/MM3 Red Blood Count 4.76 MIL/MM3 Hemoglobin 13.5 GM/DL Hematocrit 40.5 % Mean Corpuscular Volume 85.1 FL Mean Corpuscular Hemoglobin 28.3 PG Mean Corpuscular Hemoglobin Concent 33.2 % Red Cell Distribution Width 12.6 % Platelet Count 187 TH/MM3 Mean Platelet Volume 8.9 FL Neutrophils (%) (Auto) 63.1 % Lymphocytes (%) (Auto) 22.8 % Monocytes (%) (Auto) 11.5 % Eosinophils (%) (Auto) 1.6 % Basophils (%) (Auto) 1.0 % Neutrophils # (Auto) 4.0 TH/MM3 Lymphocytes # (Auto) 1.5 TH/MM3 Monocytes # (Auto) 0.7 TH/MM3 Eosinophils # (Auto) 0.1 TH/MM3 Basophils # (Auto) 0.1 TH/MM3 CBC Comment DIFF FINAL Differential Comment Blood Urea Nitrogen 15 MG/DL Creatinine 0.65 MG/DL Random Glucose 99 MG/DL Calcium Level 8.8 MG/DL Sodium Level 141 MEQ/L Potassium Level 4.4 MEQ/L Chloride Level 108 MEQ/L Carbon Dioxide Level 24.0 MEQ/L Anion Gap 9 MEQ/L Estimat Glomerular Filtration Rate 123 ML/MIN [facility] Medical Decision Making Medical Screen Exam Complete: Yes Emergency Medical Condition: Yes Medical Record Reviewed: Yes Differential Diagnosis Ovarian torsion, ovarian cystic disease, colitis Narrative Course I have reviewed the patient's electronic medical record. Like to rule out ovarian torsion with this presentation and history IV placed and labs drawn Ordered ultrasound of pelvis with Doppler to rule out torsion Ultrasound shows no problem with the left ovary. There is a small right ovarian cyst. Her labs are normal Stable for outpatient follow-up with primary care physician. Considered GI problems such as diverticulitis or colitis but she is not having any vomiting or fever and is eating well without changing symptoms. Etiology not entirely clear. Diagnosis Primary Impression: Abdominal pain Qualified Codes: R10.32 - Left lower quadrant pain Additional Instructions: The patient was advised to follow up with their physician and return if they worsen. The patient was warned about potential sedation for the medications they will receive on prescription. Med/Other Pt SpecificInfo: Prescription(s) given Scripts Ondansetron (Zofran) 4 Mg Tab 4 MG PO Q6HR Y for NAUSEA OR VOMITING, #12 TAB 0 Refills Prov: Riley Nagy MD 11/12/17 Tramadol (Tramadol) 50 Mg Tab 50 MG PO Q6H Y for PAIN, #20 TAB 0 Refills Prov: Riley Nagy MD 11/12/17 Disposition: 01 DISCHARGE HOME Condition: Stable Riley Nagy MD Nov 12, 2017 09:12
[2017-11-12 09:27] LABS: BASOPHIL # 0.1 TH/MM3 (0-0.2); EOSINOPHIL # 0.1 TH/MM3 (0-0.4); EOSINOPHIL % 1.6 % (0.0-4.0); HEMATOCRIT 40.5 % (35.0-46.0); HEMOGLOBIN 13.5 GM/DL (11.6-15.3); LYMPH % 22.8 % (9.0-44.0); LYMPHOCYTE # 1.5 TH/MM3 (1.0-4.8); MEAN CELL VOLUME 85.1 FL (80.0-100.0); MEAN CORPUSCULAR HEMOGLOBIN 28.3 PG (27.0-34.0); MEAN CORPUSCULAR HGB CONC 33.2 % (32.0-36.0); MEAN PLATELET VOLUME 8.9 FL (7.0-11.0); MONO % 11.5 % (0.0-8.0); MONOCYTE # 0.7 TH/MM3 (0-0.9); NEUT % 63.1 % (16.0-70.0); PLATELET COUNT 187 TH/MM3 (150-450); RED BLOOD COUNT 4.76 MIL/MM3 (4.00-5.30); RED CELL DISTRIBUTION WIDTH 12.6 % (11.6-17.2); WHITE BLOOD COUNT 6.4 TH/MM3 (4.0-11.0)
[2017-11-12 10:07] LABS: CALCIUM 8.8 MG/DL (8.5-10.1)
[2017-11-12 10:11] LABS: CREATININE 0.65 MG/DL (0.50-1.00)
--- NOTE | 2017-11-12 12:16 | RADRPT ---
EXAM DATE/TIME: 11/12/2017 11:48 [facility] COMPARISON: No previous studies available for comparison. INDICATIONS : Pelvic pain. MEDICAL HISTORY : . Chronic back pain. x1. Miscarriage x 1. SURGICAL HISTORY : Hysterectomy. Tubal ligation. section. D&C. ENCOUNTER: Initial ACUITY: 1 day PAIN SCORE: 4/10 LOCATION: Bilateral pelvis MEASUREMENTS: UTERUS: Surgically absent ENDOMETRIAL STRIPE: RIGHT OVARY: 2.8 x 2.6 x 1.7 cm LEFT OVARY: 3.9 x 2.0 x 1.8 cm FINDINGS: UTERUS: Surgically absent. No evidence for significant mass or collection in the nephrectomy bed. RIGHT OVARY: Complex 1.4 x 1.2 x 1.0 cm are right ovarian cystic lesion with thick wall echogenic rim. Otherwise, ovaries unremarkable. LEFT OVARY: Ovary contains no mass or significant cystic lesion. MISCELLANEOUS: No free fluid. CONCLUSION: 1. Status post hysterectomy with no significant mass or fluid collection in the hysterectomy bed. 2. Small 1.4 cm thick walled cyst in the right ovary. This lesion is somewhat nonspecific and of unce rtain clinical significance in a premenopausal patient. 3. Otherwise, unremarkable pelvic ultrasound examination. Narciso Espino MD on November 12, 2017 at 12:11 Board Certified Radiologist. This report was verified electronically.
[2017-11-12] MEDS ORDERED: ZOFR4TAB PO (12:37)
[2017-11-12] MEDS ORDERED: TRAM50TA PO (12:37)
[2017-11-12 12:53] VITALS: BP 111/80
== END 2017-11-12 12:59 | disposition home or self-care (01) ==
LOC: PHED 08:44
DX: R10.32 Left lower quadrant pain (principal); R11.2 Nausea with vomiting, unspecified; F17.210 Nicotine dependence, cigarettes, uncomplicated
CPT/HCPCS: 76856; 80048; 85025; 93975; 99285